=== PATIENT | female | born 1990 | race Hispanic/Latino ===

== ENCOUNTER 2022-11-11 22:43 | Emergency (ER) | payer BC ==
[~2022-11-11] VITALS: Ht 167.6 cm; Wt 70.3 kg
[2022-11-11 22:45] VITALS: BP 151/90
== END 2022-11-11 23:45 ==
LOC: EDH 22:43
DX: M25.531 Pain in right wrist (principal); V89.2XXA Person injured in unspecified motor-vehicle accident, traffic, initial encounter; Y93.19 Activity, other involving water and watercraft; Y92.410 Unspecified street and highway as the place of occurrence of the external cause; Y99.8 Other external cause status